=== PATIENT | female | born 1985 | race Caucasian/White ===

== ENCOUNTER 2016-08-14 20:10 | Outpatient (CLI) | payer OTHER ==
[2016-08-15] MEDS ORDERED: RANI150T PO (08:48)
[2016-08-15] MEDS ORDERED: ACET50TA PO (08:48)
[2016-08-15] MEDS ORDERED: PRENTAB9 PO (08:48)
== END 2016-08-14 22:50 | disposition home or self-care (01) ==
LOC: M LDO 20:10
PROVIDERS: ATTEND Advanced Practice Midwife
DX: O47.1 False labor at or after 37 completed weeks of gestation (principal); Z3A.40 40 weeks gestation of pregnancy

== ENCOUNTER 2016-08-15 08:41 | Inpatient (IN) | payer OTHER ==
[2016-08-15] VITALS (23 sets, daily range): BP systolic 83–132; BP diastolic 43–90
[~2016-08-15] VITALS: Ht 160 cm; Wt 77.0 kg
[2016-08-15] MEDS ORDERED: PRENTAB9 PO (08:48)
[2016-08-15] MEDS ORDERED: ACET50TA PO (08:48)
[2016-08-15] MEDS ORDERED: RANI150T PO (08:48)
[2016-08-15] MEDS ORDERED: LACTATED RINGER'S 1000 ML IV STA (09:40)
[2016-08-15 09:53] LABS: MEAN CORPUSCULAR HEMOGLOBIN 31.3 pg (27.0-33.0); MEAN CORPUSCULAR HGB CONC 34.7 g/dl (32.0-36.5); MEAN CORPUSCULAR VOLUME 90.2 fl (80.0-96.0); RED CELL DISTRIBUTION WIDTH 13.1 % (11.5-14.5); WHITE BLOOD COUNT 14.7 K/mm3 (4.0-10.0)
[2016-08-15] MEDS ORDERED: FENTANYL 2MCG/ML ROPIVACAINE 0.2% NACL 250 ML CADD As Ordered ONE (10:15)
--- NOTE | 2016-08-15 10:15 | HPEPDOC ---
Obstetrical History & Physical General Date of Admission Aug 15, 2016 at 09:34 History of Present Illness Elicia is a 30yo with beltran IUP at 40w3d presenting to L&D for painful ctx. No lof, vb. Feels good movement. Came in last night for labor check and was 1cm dilated. 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 History: Other (labial varicosities) Past Medical History Medical History Benign Surgical History: Denies Family History Significant Family History: No pertinent family hx Social History Marital Status: Family situation: Spouse/partner home Psychosocial History: No pertinent psych hx * Smoker: non-smoker Alcohol: denies Drugs: denies Imunizations Tdap status: current Influenza Status: current Allergies Coded Allergies: Penicillins (Verified Allergy, Unknown, blisters, 08/15/16) Medications Scheduled Multivitamins/ ( 27-0.8 mg) 1 Tab Tab 1 TAB PO DAILY Ranitidine HCl (Ranitidine HCl) 150 Mg Tab 1 TAB PO DAILY Scheduled PRN Acetaminophen (Mapap) 500 Mg Tab 650 MG PO Q6HP PRN PRN PAIN OR FEVER Physical Examination Physical Examination GENERAL: Alert and oriented times three. BREAST: . ABDOMEN: Gravid and non-tender to touch. FETUS: Is vertex (VTX) by sterile vaginal examination (SVE) HEART RATE: Regular rate and rhythm. LUNGS: Clear to auscultation (CTA). EXTREMITIES: trace edema BLE Vital Signs/I&O Vital Signs Date Time Temp Pulse Resp B/P Pulse Ox O2 Delivery O2 Flow Rate FiO2 08/15/16 09:00 98.4 75 20 115/55 Room Air Laboratory Data 24H LABS Laboratory Tests 2 08/15/16 09:37: Serology Scanned Report Hepatitis B Testing 08/15/16 09:47: Pertinent Laboratoy Data Blood Type: O+ RBC Antibody Screen: Negative HIV: Negative Hepatitis B: Negative Hepatitis C: Unknown Rapid Plasma Reagin: Nonreactive Rubella: Immune Chlamydia/Gonorrhea: Negative Group B Streptococcus: Negative Cystic Fibrosis: Negative Glucose Tolerance Test: 76 Anatomy Ultrasound Ultrasound Date: Mar 22, 2016 Placenta Location: Posterior Normal Anatomy: Yes Placenta Previa: No Steroid Therapy Steroid Therapy: No Vaginal Examination Dilation: 6 cm Effacement: 80+% Station: -2 Cervical Consistency: Soft Cervical Position: Anterior Presentation: Cephalic presentation Assessment Heart Rate (FHR): 150 Variability: Moderate Accelerations: Positive Decelerations: None Tocometer Contractions: Yes Frequency: regular Duration: greater than 60 seconds Strength: palpated as strong Assessment/Plan Assessment Elicia is a 30yo with beltran IUP at 40w3d in active labor with SCE 6/75/ -2, ctx q3min. Cat I tracing. Cephalic by SCE. 3200g EFW by Faustino's. GBS negative. PMhx benign, care only significant for transfer in at 25wk. Plan Admit and orient. Counseled and consented for vaginal delivery Diet: clear liquids Group B Streptococcus (GBS) negative Labs and intravenous (IV) per unit protocol. Lactated Ringers (LR): Bolus 1000 mL, then at 125 mL/hr. Anticipate normal spontaneous delivery () Desires epidural Dr. Josiane Escobedo MD [place] MD Aug 15, 2016 10:15
[2016-08-15] MEDS ORDERED: NALOXONE INJ 0.4 MG/1 ML VIAL (J2310) IV PRN ×3 (12:15→17:40)
[2016-08-15] MEDS ORDERED: EPIDURAL/PCA KEYS XX PRN (12:15)
[2016-08-15] MEDS ORDERED: FENTANYL/ROPIVACAINE/NACL CADD 250 ML EPIDURAL SCH (12:15)
[2016-08-15] MEDS ORDERED: diphenhydrAMINE INJ 50MG/ML VIAL (J1200) IV PRN (12:15)
[2016-08-15] MEDS ORDERED: ONDANSETRON 4MG/2ML VIAL (J2405) IV PRN ×4 (12:15→19:00)
[2016-08-15] MEDS ORDERED: REFRIGERATOR IV KEYS XX PRN (12:15)
[2016-08-15] MEDS ORDERED: EPIDURAL COMMENT XX SCH (12:15)
[2016-08-15] MEDS ORDERED: ePHEDrine SULFATE 25 MG/5 ML(5MG/ML) SYRINGE IV PRN (12:15)
[2016-08-15] MEDS ORDERED: LACTATED RINGER'S 1000 ML IV PRN (12:15)
[2016-08-15] MEDS: LR 1,000 ML IV SCH ×2 (12:38→15:45)
--- NOTE | 2016-08-15 13:19 | IPNPDOC ---
Text Note Date of Service The patient was seen on 08/15/16 at 13:17. NOTE Intrapartum Note Pt now comfortable with epidural. Not feeling ctx or pressure at all. SCE C/C/O. Practice pushes with a ctx revealed no progressive descent. Will labor down for 1 hour and then begin pushing in earnest. RT Cat I. Dr. Rae Escobedo MD [place] ARMANDO VS,Elsie, I+O VS, Elsie, I+O Laboratory Tests 08/15/16 09:47 Red Blood Count 3.95 L, Mean Corpuscular Volume 90.2, Mean Corpuscular Hemoglobin 31.3, Mean Corpuscular Hemoglobin Concent 34.7, Red Cell Distribution Width 13.1 Vital Signs Date Time Temp Pulse Resp B/P Pulse Ox O2 Delivery O2 Flow Rate FiO2 08/15/16 12:25 97.7 100 100 08/15/16 12:14 18 97/54 08/15/16 09:00 Room Air RAE ESCOBEDO MD Aug 15, 2016 13:18
[2016-08-15] MEDS ORDERED: OXYTOCIN 30 UNITS IN 0.9% NaCl 500ML IV BAG (J2590) As Ordered ONE (15:08)
[2016-08-15] MEDS ORDERED: OXYTOCIN DRIP 30 UNITS in APPROPRIATE DILUENT 1 EA IV SCH (15:45)
[2016-08-15] MEDS ORDERED: ceFAZolin 2 GM/D5W 50 ML IV BAG (J0690) As Ordered ONE (16:33)
[2016-08-15] MEDS ORDERED: BICITRA 30ML SOLN UDC As Ordered ONE (16:33)
--- NOTE | 2016-08-15 16:39 | IPNPDOC ---
Text Note Date of Service The patient was seen on 08/15/16 at 16:37. NOTE Intrapartum Note Patient has been pushing for approximately 2 hours with no descent. FHR deceleration occurred to the 60's for 4 minutes with full recovery after turning off pitocin, turning to side and giving O2. However, decelerations continued with each contraction, recovering each time to baseline. SCE still C/C/O, head asynclitic. In the setting of current FHRT, recommended to patient section. Consented for procedure, anesthesia/tech/nurses all aware. Will proceed to OR. Dr. Rae Escobedo MD [place] ARMANDO VS,Elsie, I+O VS, Elsie, I+O Laboratory Tests 08/15/16 09:47 Red Blood Count 3.95 L, Mean Corpuscular Volume 90.2, Mean Corpuscular Hemoglobin 31.3, Mean Corpuscular Hemoglobin Concent 34.7, Red Cell Distribution Width 13.1 Vital Signs Date Time Temp Pulse Resp B/P Pulse Ox O2 Delivery O2 Flow Rate FiO2 08/15/16 15:27 96 83/50 08/15/16 14:56 99.2 18 08/15/16 12:30 99 08/15/16 09:00 Room Air RAE ESCOBEDO MD Aug 15, 2016 16:39
[2016-08-15] MEDS ORDERED: BICITRA 30ML SOLN UDC PO ONE (16:45)
[2016-08-15] MEDS ORDERED: LIDOCAINE PRES-FREE 2% 10ML AMP As Ordered ONE ×2 (16:45)
[2016-08-15] MEDS: CLINDAMYCIN 900 MG in APPROPRIATE DILUENT 1 EA IV SCH (16:52)
[2016-08-15] MEDS ORDERED: OXYTOCIN INJ 10 UNITS/ML VIAL (J2590) As Ordered ONE ×2 (17:11)
[2016-08-15] MEDS ORDERED: MORPHINE PRES-FREE INJ 10 MG/10 ML VIAL (J2274) As Ordered ONE (17:18)
[2016-08-15] MEDS ORDERED: KETOROLAC 60 MG/2 ML VIAL (J1885) As Ordered ONE (17:19)
[2016-08-15] MEDS ORDERED: ONDANSETRON 4MG/2ML VIAL (J2405) As Ordered ONE (17:19)
[2016-08-15] MEDS: D5W IV SCH (17:30)
[2016-08-15] MEDS: GENTAMICIN SULFATE IV SCH (17:30)
[2016-08-15] MEDS ORDERED: NALBUPHINE HCL 10 MG/ML AMP (J2300) IV PRN (17:40)
[2016-08-15] MEDS ORDERED: METOCLOPRAMIDE INJ 10MG/2ML VIAL (J2765) IV PRN (17:40)
[2016-08-15 17:43] LABS: CORD GAS ABE A -7.3; CORD GAS ABE V -7.7; CORD GAS HCO3 A 21.3 MEQ/L; CORD GAS HCO3 V 20.3 MEQ/L; CORD GAS O2 SAT A 29.4 %; CORD GAS O2 SAT V 37.3 %; CORD GAS PCO2 A 54.8 mmHg; CORD GAS PCO2 V 50.5 mmHg; CORD GAS PH A 7.208 UNITS; CORD GAS PH V 7.222 UNITS; CORD GAS PO2 V 19.7 mmHg; CORD GAS SBC A 17.1 MEQ/L; CORD GAS TCO2 V 21.8 MEQ/L
[2016-08-15] MEDS ORDERED: LR 1,000 ML IV SCH (19:00)
[2016-08-15] MEDS ORDERED: RHOGAM 300 MCG (1500 IU) INJ (J2790) IM SCH (19:00)
[2016-08-15] MEDS ORDERED: MEASLES,MUMPS,RUBELLA VACCINE INJ (MMR-II) (90707) SC SCH (19:00)
[2016-08-15] MEDS ORDERED: fentaNYL 100 MCG/2 ML INJECTION (J3010) IV PRN (19:00)
[2016-08-15] MEDS ORDERED: PERCOCET 5MG/325MG TAB PO PRN ×3 (19:00)
[2016-08-15] MEDS: DOCUSATE SODIUM 100 MG CAP PO SCH (20:43)
[2016-08-16] MEDS: KETOROLAC 30 MG/ML VIAL (J1885) IV SCH ×4 (00:32→17:55)
[2016-08-16] MEDS: CLINDAMYCIN 900 MG in APPROPRIATE DILUENT 1 EA IV SCH (01:00)
[2016-08-16 02:28] VITALS: BP 109/57
[2016-08-16] MEDS: GENTAMICIN SULFATE IV SCH (06:00)
[2016-08-16] MEDS: D5W IV SCH (06:00)
[2016-08-16 06:05] VITALS: BP 107/51
[2016-08-16 07:21] LABS: MEAN CORPUSCULAR HEMOGLOBIN 31.3 pg (27.0-33.0); MEAN CORPUSCULAR HGB CONC 34.6 g/dl (32.0-36.5); MEAN CORPUSCULAR VOLUME 90.6 fl (80.0-96.0); RED CELL DISTRIBUTION WIDTH 13.3 % (11.5-14.5); WHITE BLOOD COUNT 17.1 K/mm3 (4.0-10.0)
[2016-08-16] MEDS: DOCUSATE SODIUM 100 MG CAP PO SCH ×2 (07:59→21:00)
[2016-08-16] MEDS: PRENATAL VITAMIN TAB PO SCH (08:03)
--- NOTE | 2016-08-16 08:37 | RO ---
DATE OF PROCEDURE: 08/15/2016 PREPROCEDURE DIAGNOSIS: Term active labor with development of nonreassuring heart tracing, remote from delivery. POSTPROCEDURE DIAGNOSIS: Term active labor with development of nonreassuring heart tracing, remote from delivery. SURGEON: Rae Escobedo MD MATERIAL FORWARDED TO THE LAB FOR EXAMINATION: Cord gas: pH venous 7.222, base excess -7.7. INDICATION FOR OPERATION: Elicia is a 30-year-old, 1, now para 1-0-0-1, who presented at 40 weeks 3 days in active labor. She had a normal labor course until she began pushing and after two hours had no further descent beyond 0 station. Would have allowed further pushing, given that she was a primip with an epidural , however, she started to have a nonreassuring heart tracing with heart rate deceleration into the 60s for 4 minutes that fully recovered, but then had subsequent decelerations with each contraction. Given that she was remote from delivery, still complete, complete at 0 station after 2 hours of pushing, I made the decision to proceed to section. DESCRIPTION OF FINDINGS: Male in cephalic presentation though asynclitic. scores 6 and 9. Weight 6 pounds 13 ounces or 3094 grams. Normal- appearing uterus, tubes and ovaries. There was meconium noted during labor and present after the amniotic sac was entered during the section as well. INFECTION CLASSIFICATION: II. ESTIMATED BLOOD LOSS: 400 mL. IV FLUIDS: 1300 mL of lactated Ringer. URINE OUTPUT: 200 mL of clear, yellow urine. OPERATION PERFORMED: Primary low transverse section. DESCRIPTION OF PROCEDURE: After obtaining informed consent, patient was taken to the operating room. Doppler tones prior to arriving in the operating room had been in the 140s. She had a Bravo catheter in place secondary to her epidural and bilateral sequential compression devices were placed. She received 900 mg of IV clindamycin, and she received 1.5 mg per kg of gentamicin intravenously preoperatively. She was prepped and draped in normal sterile fashion in the dorsal supine position with a left lateral tilt. Time-out was performed to confirm patient name, date of , procedure and indication. Surgical team, nursing staff, pediatrics, and anesthesia were all in agreement. Epidural anesthesia was found to be adequate using an Allis clamp. A Pfannenstiel skin incision was made with a scalpel and carried through to the underlying layer of fascia with a Bovie. The fascia was incised in the midline and the incision was extended laterally with Stevenson scissors. The superior and inferior aspects of the fascial incision were grasped with Maykel clamps, elevated and the underlying rectus muscles were dissected off bluntly and sharply. Peritoneum was entered digitally and the rectus muscles were in the midline. Peritoneal incision was extended superiorly and inferiorly with good visualization of the bladder. Bladder blade was inserted and the vesicouterine peritoneum was identified, grasped with pickups and entered sharply with Metzenbaum scissors. The incision was then extended laterally and a bladder flap created digitally. Bladder blade was reinserted and the lower uterine segment was scored in a transverse fashion with scalpel. Uterus was entered bluntly and incision extended with traction. Bladder blade was removed and the 's head was elevated to the level of the incision. Fundal pressure was applied. The head was delivered atraumatically in the OA position, though it was notably asynclitic. Anterior shoulder, posterior shoulder and corpus were delivered without difficulty. The cord was clamped and cut times two. was handed off to the awaiting pediatricians to suction below the vocal cords for presence of meconium. Cord gases were obtained. Placenta was removed with uterine massage and traction on the umbilical cord. Uterus was exteriorized and cleared of all clot and debris. Uterine incision was repaired with #0 Vicryl suture in a running locking fashion and a second layer of #0 Monocryl was used to close the hysterotomy in an imbricating fashion. Uterine incision was inspected and hemostasis was noted. Posterior cul-de-sac was irrigated. The uterus returned to the abdomen. Gutters were cleared of all clot. Peritoneum was closed using #3-0 Vicryl suture in a running fashion. Fascia was reapproximated with #0 Vicryl suture in a running fashion. Subcutaneous tissue was copiously irrigated. Cristi's fascia was reapproximated using #3-0 Vicryl suture in a running fashion. Skin edges were reapproximated using three inverted interrupted stitches using #3-0 Vicryl suture followed by a running subcuticular stitch using #4-0 Monocryl suture. The incision was cleaned using a wet lap, dried with a dry lap. Steri-Strip were applied in the usual fashion perpendicular to the Pfannenstiel incision. Telfa were layered on top of the Steri-Strips, followed by a dry sterile towel. Surgical drapes were removed. Sterile towel was removed and pressure dressing was applied over the entire surgical incision. The vagina was cleared of all blood clots without active bleeding noted. Fundus was firm at U, minus 1 cm. Sponge, lap and needle counts were correct times two. The procedure was without complications, and patient tolerated procedure well. She was taken to recovery room on labor and delivery in good condition. MICHAEL
--- NOTE | 2016-08-16 09:53 | IPNPDOC ---
Text Note Date of Service The patient was seen on 08/16/16 at 09:48. NOTE Post-Op Day 1 Elicia is a 30yo [id number] doing well on post-op day 1 s/p uncomplicated PLTCS indicated for NRFHT at 40w3d after presenting for labor. She is . Lochia normal, ambulating without difficulty. White removed last night around 2300 and finally able to spontaneously void this morning, only 250cc. Tolerating regular diet. Denies f/c/n/v/SOB/CP/LUNA/abdominal pain. Vitals wnl, afebrile Exam: General: WDWN, NAD, resting comfortably Cardiac: S1S2 present, no murmur Lungs: CTAB without wheeze/crackles Abdomen: soft, NTTP, fundus firm u-2cm, pfannensteil incision covered with dry dressing- no surrounding erythema Extremities: no tenderness of calves bilaterally, SCDs on and functioning Labs: 08/15: WBC 14.7, H/H 12.4/35.7, plt 199 08/16: WBC 17.1, H/H 10.6/30.8, plt 161 Assessment: Elicia is a 30yo [id number] doing well on post-op day 1 s/p uncomplicated PLTCS indicated for NRFHT at 40w3d after presenting for labor. Vitals wnl, benign exam. No e/o infection, though WBC elevated to 17.1 after presenting at 14.7, likely normal post-op change, but will trend. Hemodynamically stable. Voided once this morning after white removed last night. Plan: -routine post-op/post- care -Eye to urine output, patient encouraged to orally hydrate -Regular diet -Encourage ambulation and and use of IS -CBC tomorrow morning to trend -desires nexplanon for contraception Dr. Josiane Escobedo MD [place] ARMANDO VS,Elsie I+O Elsie DYKES, I+O Laboratory Tests 08/16/16 07:00 Red Blood Count 3.40 L, Mean Corpuscular Volume 90.6, Mean Corpuscular Hemoglobin 31.3, Mean Corpuscular Hemoglobin Concent 34.6, Red Cell Distribution Width 13.3 Vital Signs Date Time Temp Pulse Resp B/P Pulse Ox O2 Delivery O2 Flow Rate FiO2 1/24/17 06:05 98.6 72 16 107/51 98 Room Air I&O- Last 24 Hours up to 6 AM 08/16/16 06:00 Intake Total 1711 ml Output Total 1325 ml Balance 386 ml JOSIANE ESCOBEDO MD Aug 16, 2016 09:53
[2016-08-16 10:00] VITALS: BP 102/56
[2016-08-16 14:00] VITALS: BP 110/56
[2016-08-16 18:00] VITALS: BP 116/56
[2016-08-16 21:34] VITALS: BP 112/57
[2016-08-17] MEDS: IBUPROFEN 800 MG TAB PO SCH ×2 (01:39→08:32)
[2016-08-17 06:34] VITALS: BP 94/54
[2016-08-17] MEDS: PRENATAL VITAMIN TAB PO SCH (08:32)
[2016-08-17] MEDS: DOCUSATE SODIUM 100 MG CAP PO SCH (08:33)
[2016-08-17 08:46] LABS: MEAN CORPUSCULAR HEMOGLOBIN 31.2 pg (27.0-33.0); MEAN CORPUSCULAR HGB CONC 34.1 g/dl (32.0-36.5); MEAN CORPUSCULAR VOLUME 91.4 fl (80.0-96.0); RED CELL DISTRIBUTION WIDTH 13.5 % (11.5-14.5); WHITE BLOOD COUNT 16.1 K/mm3 (4.0-10.0)
--- NOTE | 2016-08-17 09:32 | IPNPDOC ---
Text Note Date of Service The patient was seen on 08/17/16 at 09:29. NOTE Post-Op Day 2 Elicia is a 30yo [id number] doing well on post-op day 2 s/p uncomplicated PLTCS indicated for NRFHT at 40w3d after presenting for labor. She is . Lochia normal, ambulating without difficulty. Spontaneously voiding without problem. Tolerating regular diet. Denies f/c/n/v/SOB/CP/LUNA/abdominal pain. Vitals wnl, afebrile Exam: General: WDWN, NAD, resting comfortably Cardiac: S1S2 present, no murmur Lungs: CTAB without wheeze/crackles Abdomen: soft, NTTP, fundus firm u-2cm, pfannensteil incision clean, dry, intact with steri strips overlying and no induration, erythema or drainage Extremities: no tenderness of calves bilaterally, 1+ pitting edema of BLE Labs: 08/15: WBC 14.7, H/H 12.4/35.7, plt 199 08/16: WBC 17.1, H/H 10.6/30.8, plt 161 08/17: WBC 16.1, H/H 10.5/30.8, plt 200 Assessment: Elicia is a 30yo [id number] doing well on post-op day 2 s/p uncomplicated PLTCS indicated for NRFHT at 40w3d after presenting for labor. Vitals wnl, benign exam. No e/o infection, WBC count trending down. Hemodynamically stable. Plan: -discharge home today -has home meds already: percocet, motrin, lanolin -follow up in 2 weeks for incision check at 11:05 on Aug 7 [facility] with [place] [facility] nexplanon for contraception Dr. Josiane Escobedo MD [place] [facility] VS,Fishbone, I+O VS, Fishbone, I+O Laboratory Tests 08/17/16 07:38 Red Blood Count 3.37 L, Mean Corpuscular Volume 91.4, Mean Corpuscular Hemoglobin 31.2, Mean Corpuscular Hemoglobin Concent 34.1, Red Cell Distribution Width 13.5 Vital Signs Date Time Temp Pulse Resp B/P Pulse Ox O2 Delivery O2 Flow Rate FiO2 1/25/17 06:34 97.6 88 20 94/54 Room Air 08/16/16 21:34 97 I&O- Last 24 Hours up to 6 AM 08/17/16 06:00 Intake Total 3480 ml Output Total 1520 ml Balance 1960 ml JOSIANE ESCOBEDO MD Aug 17, 2016 09:32
--- NOTE | 2016-08-17 09:37 | DS.PDOC ---
Discharge Summary General Date of Admission Aug 15, 2016 at 09:34 Date of Discharge Aug 17, 2016 Attending Physician: JOSIANE ESCOBEDO MD Discharge Summary PROCEDURES PERFORMED DURING STAY: Primary low transverse section COMPLICATIONS/CHIEF COMPLAINT: LABOR at term ADMISSION DIAGNOSES: 1. Active labor at term DISCHARGE DIAGNOSES: 1. Active labor at term 2. Primary low transverse section for non-reassuring heart tracing remote from delivery HISTORY OF PRESENT ILLNESS/HOSPITAL COURSE: Elicia is a 30yo [id number] doing well on post-op day 2 status post uncomplicated primary low transverse section indicated for non reassuring heart tracing at 40w3d after presenting for labor. Vitals normal, benign exam. No evidence of infection, white blood cell count slightly elevated on admission but trending down. Hemodynamically stable. Benign post-op course. DISCHARGE MEDICATIONS: Please see below. ALLERGIES: Please see below. PHYSICAL EXAMINATION ON DISCHARGE: Vitals within normal limits, afebrile Exam: General: WDWN, NAD, resting comfortably Cardiac: S1S2 present, no murmur Lungs: CTAB without wheeze/crackles Abdomen: soft, NTTP, fundus firm u-2cm, pfannensteil incision clean, dry, intact with steri strips overlying and no induration, erythema or drainage Extremities: no tenderness of calves bilaterally, 1+ pitting edema of BLE LABORATORY DATA: 08/15: WBC 14.7, H/H 12.4/35.7, plt 199 08/16: WBC 17.1, H/H 10.6/30.8, plt 161 08/17: WBC 16.1, H/H 10.5/30.8, plt 200 IMAGING: none VTE Prophylaxis ordered?: not indicated DISCHARGE CONDITION: stable DISPOSITION: home ACTIVITY: as tolerated, vaginal rest for 6 weeks, no heavy lifting greater than weight of baby DIET: regular DISCHARGE PLAN AND INSTRUCTIONS: -discharge home today -has home meds already: percocet, motrin, lanolin -follow up in 2 weeks for incision check at 11:05 on Aug 7 [facility] with [place] -desires nexplanon for contraception TIME SPENT ON DISCHARGE: Greater than [address] Josiane Escobedo MD [place] [facility] Vital Signs/I&Os Vital Signs Date Time Temp Pulse Resp B/P Pulse Ox O2 Delivery O2 Flow Rate FiO2 08/17/16 06:34 97.6 88 20 94/54 Room Air 08/16/16 21:34 97 I&O- Last 24 Hours up to 6 AM 08/17/16 06:00 Intake Total 3480 ml Output Total 1520 ml Balance 1960 ml Laboratory Data CBC/BMP Laboratory Tests 08/17/16 07:38 Red Blood Count 3.37 L, Mean Corpuscular Volume 91.4, Mean Corpuscular Hemoglobin 31.2, Mean Corpuscular Hemoglobin Concent 34.1, Red Cell Distribution Width 13.5 Medications Scheduled Multivitamins/ ( 27-0.8 mg) 1 Tab Tab 1 TAB PO DAILY Ranitidine HCl (Ranitidine HCl) 150 Mg Tab 1 TAB PO DAILY Scheduled PRN Acetaminophen (Mapap) 500 Mg Tab 650 MG PO Q6HP PRN PRN PAIN OR FEVER Allergies Coded Allergies: Penicillins (Verified Allergy, Unknown, blisters, 08/15/16) JOSIANE ESCOBEDO MD Aug 17, 2016 09:37
[2016-08-17 10:00] VITALS: BP 106/59
[2016-08-17] MEDS ORDERED: OXYC1TAB23 PO ×2 (10:32→10:33)
[2016-08-17] MEDS ORDERED: IBUP-1114 PO (10:34)
== END 2016-08-17 12:12 | disposition home or self-care (01) | DRG 766 ==
LOC: M LDO 08:41 → M LDI 09:34 → M OBS 20:14
PROVIDERS: ADMIT Obstetrics & Gynecology; ATTEND Obstetrics & Gynecology
PROC: 10D00Z1 Extraction of Products of Conception, Low, Open Approach (ICD-10-PCS; principal; 2016-08-15 16:58)
DX: O48.0 Post-term pregnancy (principal); Z37.0 Single live birth; Z3A.40 40 weeks gestation of pregnancy; Z88.0 Allergy status to penicillin; O76 Abnormality in fetal heart rate and rhythm complicating labor and delivery; O32.4XX0 Maternal care for high head at term, not applicable or unspecified; O77.0 Labor and delivery complicated by meconium in amniotic fluid